=== PATIENT | male | born 1965 | race Caucasian/White ===

== ENCOUNTER → 2016-09-01 | Outpatient (CLI) | payer BC ==
[~2016-09-01] MED LIST: OMEP20CA12 PO
== END ==
LOC: CARD 14:14
PROVIDERS: ATTEND Internal Medicine
DX: R00.2 Palpitations (principal); R42 Dizziness and giddiness
CPT/HCPCS: 93225; 93226

== ENCOUNTER 2018-03-18 10:00 | Outpatient (CLI) | payer BC ==
[~2018-03-18] VITALS: Ht 182.9 cm; Wt 97.5 kg
== END 2018-03-18 10:23 | disposition home or self-care (01) ==
LOC: PREOP 10:00
PROVIDERS: ATTEND Internal Medicine
DX: Z01.818 Encounter for other preprocedural examination (principal)

== ENCOUNTER 2018-03-19 06:49 | Day surgery (SDC) | payer BC ==
[~2018-03-19] VITALS: Ht 182.9 cm; Wt 97.5 kg
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
--- OUTSIDE RECORDS SUMMARY | 2018-03-19 06:52 | XMS REPORT | Continuity of Care Document ---
Author Author [facility] Organization [facility] Address Unknown Phone Unavailable Allergies Active Description Code Type Severity Reaction Onset Reported/Identified Relationship to Patient Clinical Status Yes No Known Drug Allergies [id number] Drug Allergy Unknown N/A 11/23/2013 Medications There is no data. Problems Date Dx Coded Attending Type Code Diagnosis Diagnosed By 07/01/2015 ETHAN GUIDRY MD Ot K21.9 GASTRO-ESOPHAGEAL REFLUX DISEASE WITHOUT 07/01/2015 ETHAN GUIDRY MD Ot R07.9 CHEST PAIN, UNSPECIFIED 07/01/2015 ETHAN GUIDRY MD Ot R50.9 FEVER, UNSPECIFIED 07/01/2015 ETHAN GUIDRY MD Ot R79.1 ABNORMAL COAGULATION PROFILE 07/01/2015 ETHAN GUIDRY MD Ot Z23 ENCOUNTER FOR IMMUNIZATION 09/17/2016 DILIA LUCAS MD Ot R00.2 PALPITATIONS 09/17/2016 DILIA LUCAS MD Ot R42 DIZZINESS AND GIDDINESS Procedures There is no data. Results There is no data. Encounters ACCT No. Visit Date/Time Discharge Status Pt. Type Provider Facility Loc./Unit Complaint [id number] 09/01/2016 14:14:00 09/01/2016 23:59:59 CLS Outpatient DILIA LUCAS MD [facility] CARD PALPITATIONS,DIZZINESS [id number] 06/30/2015 18:22:00 07/01/2015 14:59:00 DIS Inpatient ETHAN GUIDRY MD [facility] [address] [id number] 11/23/2013 10:54:00 11/23/2013 13:29:00 DIS Emergency
[2018-03-19] MEDS ORDERED: D5 LR IV SOLUTION 1,000 ML IV STA (07:03)
[2018-03-19] MEDS ORDERED: D5 LR IV SOLUTION 1,000 ML IV ONE (07:10)
[2018-03-19] MEDS ORDERED: MIDAZOLAM 2 MG/2 ML (VERSED) VIAL IVP ONE (07:15)
[2018-03-19] MEDS ORDERED: LIDOCAINE JELLY 2% 6 ML SYRINGE MM PRN (07:15)
[2018-03-19] MEDS ORDERED: fentaNYL INJECTION 100 MCG/2 ML AMP IVP ONE (07:15)
[2018-03-19 07:24] VITALS: BP 126/87
[2018-03-19] MEDS ORDERED: fentaNYL INJECTION 100 MCG/2 ML AMP ONE (07:52)
[2018-03-19] MEDS ORDERED: MIDAZOLAM 2 MG/2 ML (VERSED) VIAL ONE ×2 (07:52)
[2018-03-19] MEDS ORDERED: LIDOCAINE JELLY 2% 6 ML SYRINGE ONE (07:52)
[2018-03-19 08:40] VITALS: BP 117/79
--- NOTE | 2018-03-19 08:45 | Pre-Op Note & Conscious Sedat ---
Pre-Operative Progress Note H&P Reviewed The H&P was reviewed, patient examined and no changes noted. Date H&P Reviewed: Mar 19, 2018 Time H&P Reviewed: 07:45 Conscious Sedation Pre-Proced ASA Score 1 For ASA 3 and 4: Consider anesthesia and medical clearance. Also, for patients with a history of failed moderate sedation consider anesthesia. Airway Lungs Heart ASA score ASA 1: a normal healthy patient ASA 2: a patient with a mild systemic disease (mid diabetes, controlled hypertension, obesity ASA 3: a patient with a severe systemic disease that limits activity (angina , COPD, prior Myocardial infarction) ASA 4: a patient with an incapacitating disease that is a constant threat to life (CHF, renal failure) ASA 5: a moribund patient not expected to survive 24 hrs. (ruptured aneurysm) ASA 6: a declared brain patient whose organs are being harvested. For emergent operations, add the letter E after the classification Mallampati Classification Grade 2 Sedation Plan Analgesia, Amnesia, Plan communicated to team members, Discussed options with patient/fam, Discussed risks with patient/fam The patient is an appropriate candidate to undergo the planned procedure, sedation, and anesthesia. The patient immediately re-assessed prior to indication. BHARGAV JENSEN MD Mar 19, 2018 08:45
[2018-03-19 09:10] VITALS: BP 134/84
[2018-03-19 09:30] VITALS: BP 134/84
--- NOTE | 2018-03-19 15:29 | OPERATIVE REPORT ---
DATE OF SERVICE: The patient was referred by Dr. Rosario for screening colonoscopy. The patient was placed in the left lateral decubitus position. Prior to undergoing colonoscopy, digital rectal evaluation was performed. Anal sphincter tone was normal and the perianal reflex was intact. Digital inspection of the prostate was unremarkable, it was anodular and nontender to digital inspection. No other abnormalities noted to digital inspection of anal canal or distal rectal vault. The colonoscope was then inserted into the rectum under direct visualization and advanced to the cecum. The cecum was identified by identification of the ileocecal valve and cecal strap. Photographic documentation was obtained. Careful inspection was made as the colonoscope was withdrawn. The patient tolerated the procedure well. FINDINGS: There was no evidence for internal or external hemorrhoids. Present in the mid rectum was a diminutive hyperplastic appearing polyp that was photographed and biopsied and ablated with minimal blood loss. Remainder of the rectum was unremarkable. The sigmoid colon, descending colon, splenic flexure, transverse colon, hepatic flexure, ascending colon and cecum were unremarkable. No other evidence for neoplasia or diverticular disease was noted. ASSESSMENT: Diminutive hyperplastic appearing polyp was removed from the mid rectum. This was an otherwise normal colonoscopy to the cecum including unremarkable digital evaluation of the prostate. I thank you for the referral of this pleasant gentleman. As he is not aware of any family history for colon cancer as long as this continues to be the case, we would advocate consideration for repeat screening colonoscopy in 10 years. Job ID: [id number] DocumentID: [id number] Dictated Date: 03/19/2018 08:53:19 Personal Lines Agent Date: 03/19/2018 15:28:46 Dictated By: BHARGAV JENSEN MD
--- NOTE | 2018-03-24 09:26 | HISTORY AND PHYSICAL ---
DATE OF ADMISSION: 09/01/2016. The patient is a 53-year-old white male referred by Dr. Rosario for his first screening colonoscopy. He reports that he has been feeling well. He states that previously he had undergone EGD evaluation for some reflux symptoms. He was noted to have hiatal hernia and he does not believe he had erosive esophagitis and there is no evidence for Dash's change. Ever since being on omeprazole, he has had no further difficulty with reflux indigestion. No dysphagia or abdominal pain. He denies any change in bowel habits or recent fluctuations in weight. He denies melena or bright red blood per rectum. PAST MEDICAL HISTORY: Relatively unremarkable. He had an admission in 2016 for atypical chest pain with some shortness of breath. His D-dimer was elevated. He ruled out for an acute coronary syndrome and had negative venous Doppler studies as well as subclavian vein prompted by an unusual CT angio that was ultimately attributed to poor timing of contrast administration and image acquisition. It revealed no other abnormalities. PAST SURGICAL HISTORY: Significant for an umbilical hernia repair. He had an appendectomy at the age of 18 and has had rather severe facial laceration traumatic requiring some reconstruction. 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 FAMILY HISTORY: He is not aware of any history of GI tract malignancy. His father did have DVT/PE and there is some family history for Alzheimer's dementia. He is not aware of any history of Dash's or esophageal or gastric cancer. REVIEW OF SYSTEMS: CONSTITUTIONAL: He denies any night sweats, chills, fever with stable energy level. RESPIRATORY: He has had no chest pain, shortness of breath or wheezing. CARDIOVASCULAR: No chest pain or tachycardia problems or dyspnea on exertion have been noted. GASTROINTESTINAL: As noted in the HPI. PHYSICAL EXAMINATION: GENERAL: Reveals well-appearing white male in no acute distress. VITAL SIGNS: Weight is 226 pounds. Blood pressure is 120/82. HEENT: Unremarkable except for some scarring from the facial laceration right cheek and lip area. Sclerae nonicteric. NECK: Revealed no JVD, adenopathy or bruits. CHEST: Clear to auscultation. CARDIOVASCULAR: Reveals a regular rate and rhythm without murmur, S3 or S4. ABDOMEN: Soft, supple without mass, organomegaly or tenderness. EXTREMITIES: Reveal no cyanosis, clubbing or edema. ASSESSMENT: The patient was seen in the office on 03/08/2018 and set up for surveillance colonoscopy on 03/19/2018. Prep instructions with Suprep kit were given and questions were answered. I thank you for the referral of this pleasant gentleman. Job ID: [id number] DocumentID: [id number] Dictated Date: 03/09/2018 12:42:55 Valet Runner Date: 03/09/2018 13:03:46 Dictated By: BHARGAV JENSEN MD <Dictated by BHARGAV JENSEN MD> <Electronically signed by BHARGAV JENSEN MD> 03/14/181952
== END 2018-03-19 09:30 | disposition home or self-care (01) ==
LOC: ENDO 06:49
PROVIDERS: ATTEND Internal Medicine
DX: Z12.11 Encounter for screening for malignant neoplasm of colon (principal); K62.1 Rectal polyp
CPT/HCPCS: 88305

== ENCOUNTER 2018-06-29 16:23 | Emergency (ER) | payer BC ==
[~2018-06-29] VITALS: Ht 182.9 cm; Wt 99.8 kg
[2018-06-29] MEDS ORDERED: ASPIRIN 81 MG CHEW (CHILDREN'S ASA) PO ONE (16:45)
[2018-06-29 16:49] LABS: BASOPHILS % (AUTO) 1 % (0-10); EOSINOPHILS # (AUTO) 0.1 10^3/uL (0.0-0.3); EOSINOPHILS % (AUTO) 3 % (0-10); HEMATOCRIT 41 % (40-54); HEMOGLOBIN 14.5 G/DL (13.3-17.7); LYMPHOCYTES # (AUTO) 1.1 X 10^3 (1.0-4.0); LYMPHOCYTES % (AUTO) 23 % (12-44); MEAN CORPUSCULAR HEMOGLOBIN 29 PG (25-34); MEAN CORPUSCULAR HGB CONC 36 G/DL (32-36); MEAN CORPUSCULAR VOLUME 81 FL (80-99); MEAN PLATELET VOLUME 10.1 FL (7.4-10.4); MONOCYTES # (AUTO) 0.6 X 10^3 (0.0-1.0); MONOCYTES % (AUTO) 13 % (0-12); NEUTROPHILS # (AUTO) 2.9 X 10^3 (1.8-7.8); NEUTROPHILS % (AUTO) 61 % (42-75); PLATELET COUNT 232 10^3/uL (130-400); RED CELL DISTRIBUTION WIDTH 13.5 % (10.0-14.5); WHITE BLOOD COUNT 4.8 10^3/uL (4.3-11.0)
[2018-06-29 17:01] LABS: INR 1.5 (0.8-1.4)
[2018-06-29 17:08] LABS: ALANINE AMINOTRANSFERASE 33 U/L (0-55); ALBUMIN 4.3 GM/DL (3.2-4.5); ALKALINE PHOSPHATASE 90 U/L (40-136); BILIRUBIN,TOTAL 0.3 MG/DL (0.1-1.0); BUN/CREATININE RATIO 12; CALCIUM 9.2 MG/DL (8.5-10.1); CARBON DIOXIDE 26 MMOL/L (21-32); CHLORIDE 106 MMOL/L (98-107); CREATININE SERUM 0.84 MG/DL (0.60-1.30); GFR ESTIMATED > 60; GLUCOSE 97 MG/DL (70-105); LIPASE 27 U/L (8-78); POTASSIUM 3.5 MMOL/L (3.6-5.0); SODIUM 142 MMOL/L (135-145); TOTAL PROTEIN 7.7 GM/DL (6.4-8.2)
--- NOTE | 2018-06-29 17:14 | Diagnostic Imaging Report ---
INDICATION: Chest pain. EXAMINATION: Portable chest at 5:05 p.m. FINDINGS: Heart size and pulmonary vascularity are normal. Lungs are clear. There are no effusions or pneumothoraces. IMPRESSION: Negative chest. Dictated by: Dictated on workstation # [id number]
[2018-06-29 17:17] LABS: MYOGLOBIN SERUM 36.4 NG/ML (10.0-92.0)
--- NOTE | 2018-06-29 17:47 | ED Chest Pain ---
General Chief Complaint: Chest Pain Stated Complaint: CHEST DISCOMFORT,SEND BY DR. LUCAS'S OFFICE Nursing Triage Note: PT PRESENTS TO ER WITH COMPLAINT OF CHEST PAIN. STATES IT HAS BEEN GOING ON FOR THE LAST FEW DAYS. STATES IT IS A DULL INTERMITTENT PAIN. Nursing Sepsis Screen: No Definite Risk Source: patient Exam Limitations: no limitations (TERRY HENLEY MD) History of Present Illness Date Seen by Provider: Jun 29, 2018 Time Seen by Provider: 17:16 Initial Comments Here with report of central chest palpitations that has been intermittent for the last few days but more persistent today. Denies nausea, vomiting, sweating or weakness. Today he noted when he woke up that he felt the palpitations. Has not had any cardiac workup previously. Pain is gone now. He took 1 baby aspirin earlier today. Timing/Duration: intermittent, gone now, 2-3 days Severity/Quality: pressure, other Location: central (palpitations) Radiation: other (both sides of the chest) Activities at Onset: none Prior CP/Workup: no prior cardiac workup Modifying Factors: improves with rest ASA po PURCHASING ASSOCIATE: Yes NTG SL PURCHASING ASSOCIATE: No Associated Symptoms: No abdominal pain, No back pain, No diaphoresis, No fever/ chills, No nausea/vomiting, No shortness of breath, No weakness (TERRY HENLEY MD) Allergies and Home Medications Allergies Coded Allergies: No Known Drug Allergies (Unverified , 11/23/13) Home Medications Omeprazole 20 Mg Capsule.dr, 20 MG PO DAILY, (Reported) Patient Home Medication List Home Medication List Reviewed: Yes (TERRY HENLEY MD) Review of Systems Review of Systems Constitutional: No chills, No fever EENTM: No Symptoms Reported Respiratory: No Symptoms Reported Cardiovascular: See HPI, Chest Pain Gastrointestinal: Denies Abdominal Pain, Denies Nausea, Denies Vomiting Genitourinary: No Symptoms Reported Musculoskeletal: no symptoms reported Skin: no symptoms reported (TERRY HENLEY MD) All Other Systems Reviewed Negative Unless Noted: Yes (TERRY HENLEY MD) Past Icmkqbc-Pfzrbi-Lfrfix Hx Past Med/Social Hx: Reviewed Nursing Past Med/Soc Hx (TERRY HENLEY MD) Patient Social History Alcohol Use: Denies Use Recreational Drug Use: No Smoking Status: Never a Smoker Recent Foreign Travel: No Contact w/Someone Who Travel: No Recent Infectious Disease Expo: No Recent Hopitalizations: No (TERRY HENLEY MD) Immunizations Up To Date Tetanus Booster (TDap): Unknown (TERRY HENLEY MD) Seasonal Allergies Seasonal Allergies: No (TERRY HENLEY MD) Past Medical History Surgeries: Yes (UMB HERNIA, FACE LACERATION WITH RECONSTRUCTION, ankle right, BMT) Appendectomy, Orthopedic Respiratory: Yes Sleep Apnea Currently Using CPAP: No Cardiac: No Neurological: No Reproductive Disorders: No Sexually Transmitted Disease: No HIV/AIDS: No Gastrointestinal: Yes Gastroesophageal Reflux Musculoskeletal: No Endocrine: No Chronic Eye Infection Loss of Vision: Denies Hearing Impairment: Denies Cancer: No Psychosocial: No Integumentary: No Blood Disorders: No (TERRY HENLEY MD) Family Medical History Reviewed Nursing Family Hx (TERRY HENLEY MD) Alzheimer's disease Arthritis Cardiovascular disease Completed stroke Dementia Seizure disorder Tuberculosis DVT/PE (TERRY HENLEY MD) Physical Exam Vital Signs Vital Signs - First Documented 06/29/18 16:31 Pulse 63 Resp 15 B/P (MAP) 125/97 (106) Pulse Ox 97 O2 Delivery Room Air (SHERRI,ARELI K DO) Vital Signs Capillary Refill : Less Than 3 Seconds (TERRY HENLEY MD) Height, Weight, BMI Height: 6'0" Weight: 220lbs. 0.0oz. 99.922151wc; 29.2 BMI Method:Stated General Appearance: No Apparent Distress, WD/WN HEENT: PERRL/EOMI, Pharynx Normal Neck: Non Tender, Supple Respiratory: Lungs Clear, Normal Breath Sounds Cardiovascular: Regular Rate, Rhythm, No Murmur Gastrointestinal: Non Tender, Soft Extremity: Normal Range of Motion, Non Tender Neurologic/Psychiatric: Alert, Oriented x3 Skin: Normal Color, Warm/Dry (TERRY HENLEY MD) Progress/Results/Core Measures Results/Orders Lab Results Laboratory Tests Test 06/29/18 16:44 06/29/18 18:49 Range/Units White Blood Count 4.8 4.3-11.0 10^3/uL Red Blood Count 5.02 4.35-5.85 10^6/uL Hemoglobin 14.5 13.3-17.7 G/DL Hematocrit 41 40-54 % Mean Corpuscular Volume 81 80-99 FL Mean Corpuscular Hemoglobin 29 25-34 PG Mean Corpuscular Hemoglobin Concent 36 32-36 G/DL Red Cell Distribution Width 13.5 10.0-14.5 % Platelet Count 232 130-400 10^3/uL Mean Platelet Volume 10.1 7.4-10.4 FL Neutrophils (%) (Auto) 61 42-75 % Lymphocytes (%) (Auto) 23 12-44 % Monocytes (%) (Auto) 13 H 0-12 % Eosinophils (%) (Auto) 3 0-10 % Basophils (%) (Auto) 1 0-10 % Neutrophils # (Auto) 2.9 1.8-7.8 X 10^3 Lymphocytes # (Auto) 1.1 1.0-4.0 X 10^3 Monocytes # (Auto) 0.6 0.0-1.0 X 10^3 Eosinophils # (Auto) 0.1 0.0-0.3 10^3/uL Basophils # (Auto) 0.0 0.0-0.1 10^3/uL Prothrombin Time 18.0 H 12.9 12.2-14.7 SEC INR Comment 1.5 H 1.0 0.8-1.4 Activated Partial Thromboplast Time 27 24-35 SEC D-Dimer 0.45 0.00-0.49 UG/ML Sodium Level 142 135-145 MMOL/L Potassium Level 3.5 L 3.6-5.0 MMOL/L Chloride Level 106 98-107 MMOL/L Carbon Dioxide Level 26 21-32 MMOL/L Anion Gap 10 5-14 MMOL/L Blood Urea Nitrogen 10 7-18 MG/DL Creatinine 0.84 0.60-1.30 MG/DL Estimat Glomerular Filtration Rate > 60 BUN/Creatinine Ratio 12 Glucose Level 97 70-105 MG/DL Calcium Level 9.2 8.5-10.1 MG/DL Corrected Calcium 9.0 8.5-10.1 MG/DL Magnesium Level 2.0 1.8-2.4 MG/DL Total Bilirubin 0.3 0.1-1.0 MG/DL Aspartate Amino Transf (AST/SGOT) 21 5-34 U/L Alanine Aminotransferase (ALT/SGPT) 33 0-55 U/L Alkaline Phosphatase 90 40-136 U/L Myoglobin 36.4 10.0-92.0 NG/ML Troponin I < 0.028 < 0.028 <0.028 NG/ML Total Protein 7.7 6.4-8.2 GM/DL Albumin 4.3 3.2-4.5 GM/DL Lipase 27 8-78 U/L (ARELI NAGEL DO) Medications Given in ED Current Medications Medications Dose Ordered Sig/Raghav Route Start Time Stop Time Status Last Admin Dose Admin Aspirin 324 mg ONCE ONCE PO 06/29/18 16:45 06/29/18 16:46 DC 06/29/18 17:00 324 MG (ARELI NAGEL DO) Vital Signs/I&O 06/29/18 16:31 Pulse 63 Resp 15 B/P (MAP) 125/97 (106) Pulse Ox 97 O2 Delivery Room Air (ARELI NAGEL DO) Blood Pressure Mean: 106 Progress Progress Note : Progress Note Seen and evaluated. IV, labs, EKG and chest x-ray ordered. ASA 324 mg by mouth ordered. Monitor patient. We will check d-dimer as well as there was some concern of blood clot in his history. Monitor patient. 184: PT/INR was elevated and there is no reason for that. We will recheck that as well as a troponin now. Patient does not want any further evaluation if possible. EKG, troponin and d-dimer are all negative. He does need follow-up with his doctor for recheck and for outpatient stress test if these are okay. Care transferred to Dr. Nagel at this time pending labs. (TERRY HENLEY MD) Progress Note : Progress Note 193--ASSUMED CARE FROM DR. HENLEY, ALL TESTS BACK AND ARE NORMAL. WILL DISMISS TO HOME AND HAVE PT FOLLOW UP WITH PCP FOR FURTHER EVALUATION. PT HAS NOT HAD ANY ARRHYTHMIAS DURING ER STAY OR ANY OTHER SYMPTOMS. (ARELI NAGEL DO) Initial ECG Impression Date: Jun 29, 2018 Initial ECG Impression Time: 16:35 Initial ECG Rate: 61 Initial ECG Rhythm: Normal Sinus Comment Sinus rhythm with left axis deviation. No evidence of ST elevation DC. Similar to 07/01/15. Interpreted by me. (TERRY HENLEY MD) Diagnostic Imaging Diagonstic Imaging: Xray Plain Films/CT/US/NM/MRI: chest Comments NAME: AURELIANO GALEANA [facility] REC#: [id number] PT STATUS: REG ER : 1965 PHYSICIAN: TERRY HENLEY MD ADMIT DATE: 06/29/18/ER Signed Date of Exam: 06/29/18 CHEST 1 VIEW, AP/PA ONLY INDICATION: Chest pain. EXAMINATION: Portable chest at 5:05 p.m. FINDINGS: Heart size and pulmonary vascularity are normal. Lungs are clear. There are no effusions or pneumothoraces. IMPRESSION: Negative chest. Dictated by: Dictated on workstation # [id number] Dict: 06/29/181711 Trans: 06/29/181717 Interpreted by: TERRY MCCANN MD Electronically signed by: TERRY MCCANN MD 06/29/181717 (TERRY HENLEY MD) Departure Impression Primary Impression: Palpitations Disposition: 01 HOME, SELF-CARE Condition: Improved Departure-Patient Inst. Referrals: DILIA LUCAS MD (PCP/Family) Primary Care Physician Patient Instructions: Palpitations (DC) Add. Discharge Instructions: HOME, REST FOLLOW UP WITH YOUR DR THIS WEEK FOR FURTHER CARE RETURN TO ER IF SYMPTOMS RETURN All discharge instructions reviewed with patient and/or family. Voiced understanding. TERRY HENLEY MD Jun 29, 2018 17:47 ARELI NAGEL DO Jun 29, 2018 19:42
--- NOTE | 2018-06-29 18:55 | NUR ---
ASSUMED CARE OF PT @ THIS TIME. REPORT GIVEN FROM ALONDRA GEE.
[2018-06-29 19:18] LABS: PROTHROMBIN TIME PATIENT 12.9 SEC (12.2-14.7)
[2018-06-29 19:52] VITALS: BP 108/88
== END 2018-06-29 19:55 | disposition home or self-care (01) ==
LOC: EDUNIT# 16:23 → ER 16:25
DX: R00.0 Tachycardia, unspecified (principal); G47.30 Sleep apnea, unspecified; K21.9 Gastro-esophageal reflux disease without esophagitis; Z82.49 Family history of ischemic heart disease and other diseases of the circulatory system; Z90.49 Acquired absence of other specified parts of digestive tract; Z98.890 Other specified postprocedural states
CPT/HCPCS: 36415; 71045; 80053; 83690; 83735; 83874; 84484; 85025; 85379; 85610; 85730; 93005; 93041

== ENCOUNTER → 2018-09-23 | Outpatient (CLI) | payer BC | END | disposition home or self-care (01) | LOC: PREOP 08:15 | PROVIDERS: ATTEND Internal Medicine | DX: Z01.818 Encounter for other preprocedural examination (principal) ==

== ENCOUNTER 2018-09-24 08:05 | Day surgery (SDC) | payer BC ==
--- NOTE | 2018-09-23 17:59 | HISTORY AND PHYSICAL ---
DATE OF SERVICE: DATE OF ADMISSION: 09/24/2018. EGD HISTORY AND PHYSICAL HISTORY OF PRESENT ILLNESS: The patient is a 53-year-old white male referred by Dr. Rosario for EGD evaluation for intermittent dysphagia. He reports that it is typically the solids, feels like it is in the back of his throat and not in the epigastric area. He reports no history of any neurologic disorders. Denies any problems with weakness or any other new neurologic symptoms and denies any nasal regurgitation. He has not had to regurgitate food, but symptoms have been getting worse over the past several months. He had a past history of EGD evaluation over 5 years ago at which time he was told he had some esophageal ulcers with hiatal hernia. He started omeprazole at that time and did not had any heartburn type symptoms since and previously had not had dysphagia reported. He denies any increased stress with usual energy level. He has had no melena or bright red blood per rectum. PAST MEDICAL HISTORY: He was admitted in 2016 for atypical chest pain shortness of breath and D-dimer was elevation. CT angio was negative. He ruled out for an acute coronary syndrome. I performed colonoscopy on him last year that revealed no evidence for neoplasia. PAST SURGICAL HISTORY: Significant for umbilical hernia repair. He had an appendectomy at the age of 18 and traumatic facial lacerations requiring reconstructive surgery. SOCIAL HISTORY: He is a regional dedicated truck driver employed, , with no past smoking or significant alcohol intake history. FAMILY HISTORY: He is not aware of any family history for Dash's esophagus or GI tract malignancy. His father did have history of pulmonary embolism and DVT as well as Alzheimer's dementia. REVIEW OF SYSTEMS: CONSTITUTIONAL: He denies night sweats, chills, fever. RESPIRATORY: He denies shortness of breath, wheezing or chest pain. CARDIOVASCULAR: He has had no problems with tachycardia, palpitations or dyspnea on exertion. GASTROINTESTINAL: As noted in the HPI. PHYSICAL EXAMINATION: GENERAL: Reveals thin, well-appearing white male in no acute distress. VITAL SIGNS: Weight 226 pounds is stable compared to seven months ago. Blood pressure 120/70. HEENT: Unremarkable. Oral cavity is clear. Posterior pharynx reveals no evidence for erythema or exudate. NECK: Reveals no JVD, adenopathy, mass or thyromegaly to palpation. CHEST: Clear to auscultation. CARDIOVASCULAR: Reveals regular rate and rhythm without murmur, S3 or S4. ABDOMEN: Soft, supple without mass, organomegaly or tenderness. EXTREMITIES: Reveal no cyanosis, clubbing or edema. ASSESSMENT AND PLAN: For further investigation of dysphagia with a past history of erosive esophagitis, the patient is set up for EGD evaluation on 09/24/2018. He is to continue omeprazole 40 mg daily in the interim. I thank you for the referral of this pleasant gentleman. Job ID: [id number] DocumentID: [id number] Dictated Date: 09/23/2018 17:11:34 Route Salesman Date: 09/23/2018 17:58:41 Dictated By: BHARGAV JENSEN MD MTDD
[~2018-09-24] VITALS: Ht 182.9 cm; Wt 99.8 kg
[2018-09-24] MEDS ORDERED: LIDOCAINE JELLY 2% 6 ML SYRINGE MM PRN (08:15)
[2018-09-24] MEDS ORDERED: D5 LR IV SOLUTION 1,000 ML IV PRN (08:15)
[2018-09-24] MEDS ORDERED: HURRICAINE EXT TUBE (BENZOCAINE) XX PRN (08:15)
[2018-09-24 08:20] VITALS: BP 128/91
[2018-09-24] MEDS ORDERED: D5 LR IV SOLUTION 1,000 ML IV ONE (08:20)
[2018-09-24] MEDS ORDERED: MIDAZOLAM 2 MG/2 ML (VERSED) VIAL ONE ×4 (08:57→09:29)
[2018-09-24] MEDS ORDERED: LIDOCAINE JELLY 2% 6 ML SYRINGE ONE (08:58)
[2018-09-24] MEDS ORDERED: HURRICAINE EXT TUBE (BENZOCAINE) ONE (08:58)
[2018-09-24] MEDS ORDERED: fentaNYL INJECTION 100 MCG/2 ML AMP ONE (08:58)
--- NOTE | 2018-09-24 09:01 | Pre-Op Note & Conscious Sedat ---
Pre-Operative Progress Note H&P Reviewed The H&P was reviewed, patient examined and no changes noted. Date H&P Reviewed: Sep 24, 2018 Time H&P Reviewed: 08:40 Conscious Sedation Pre-Proced ASA Score 2 For ASA 3 and 4: Consider anesthesia and medical clearance. Also, for patients with a history of failed moderate sedation consider anesthesia. Airway Lungs Heart ASA score ASA 1: a normal healthy patient ASA 2: a patient with a mild systemic disease (mid diabetes, controlled hypertension, obesity ASA 3: a patient with a severe systemic disease that limits activity (angina, COPD, prior Myocardial infarction) ASA 4: a patient with an incapacitating disease that is a constant threat to life (CHF, renal failure) ASA 5: a moribund patient not expected to survive 24 hrs. (ruptured aneurysm) ASA 6: a declared brain- patient whose organs are being harvested. For emergent operations, add the letter E after the classification Mallampati Classification Grade 2 Sedation Plan Analgesia, Amnesia, Plan communicated to team members, Discussed options with patient/fam, Discussed risks with patient/fam The patient is an appropriate candidate to undergo the planned procedure, sedation, and anesthesia. The patient immediately re-assessed prior to indication. BHARGAV JENSEN MD Sep 24, 2018 09:01
[2018-09-24] MEDS ORDERED: fentaNYL INJECTION 100 MCG/2 ML AMP IVP ONE (09:45)
[2018-09-24] MEDS ORDERED: MIDAZOLAM 2 MG/2 ML (VERSED) VIAL IVP ONE (09:45)
[2018-09-24 10:20] VITALS: BP 124/77
[2018-09-24 10:50] VITALS: BP 127/72
--- OUTSIDE RECORDS SUMMARY | 2018-09-24 13:20 | XMS REPORT | Continuity of Care Document ---
Author Organization Unknown Address Unknown Allergies Active Description Code Type Severity Reaction Onset Reported/Identified Relationship to Patient Clinical Status Yes No Known Drug Allergies [id number] Drug Allergy Unknown N/A 11/23/2013 Medications There is no data. Problems Date Dx Coded Attending Type Code Diagnosis Diagnosed By 07/01/2015 CHAO CAMEJO, ETHAN Little Ot K21.9 GASTRO-ESOPHAGEAL REFLUX DISEASE WITHOUT 07/01/2015 ETHAN GUIDRY MD Ot R07.9 CHEST PAIN, UNSPECIFIED 07/01/2015 ETHAN GUIDRY MD Ot R50.9 FEVER, UNSPECIFIED 07/01/2015 ETHAN GUIDRY MD Ot R79.1 ABNORMAL COAGULATION PROFILE 07/01/2015 CHAO CAMEJO, ETHAN Little Ot Z23 ENCOUNTER FOR IMMUNIZATION 09/17/2016 DILIA LUCAS MD Ot R00.2 PALPITATIONS 09/17/2016 IDLIA LUCAS MD Ot R42 DIZZINESS AND GIDDINESS 03/17/2018 BHARGAV JENSEN MD Ot Z01.818 ENCOUNTER FOR OTHER PREPROCEDURAL EXAMIN 03/18/2018 DILIA LUCAS MD Ot R00.2 PALPITATIONS 03/18/2018 DILIA LUCAS MD Ot R42 DIZZINESS AND GIDDINESS 03/18/2018 BHARGAV JENSEN MD Ot Z01.818 ENCOUNTER FOR OTHER PREPROCEDURAL EXAMIN 03/18/2018 BHARGAV JENSEN MD Ot Z01.818 ENCOUNTER FOR OTHER PREPROCEDURAL EXAMIN 03/18/2018 BHARGAV JENSEN MD Ot Z01.818 ENCOUNTER FOR OTHER PREPROCEDURAL EXAMIN 03/19/2018 DILIA LUCAS MD Ot R00.2 PALPITATIONS 03/19/2018 DILIA LUCAS MD Ot R42 DIZZINESS AND GIDDINESS 03/19/2018 BHARGAV JENSEN MD Ot K62.1 RECTAL POLYP 03/19/2018 BHARGAV JENSEN MD Ot Z12.11 ENCOUNTER FOR SCREENING FOR MALIGNANT NE 03/24/2018 CAMILA CAMEJO, BHARGAV Mahmood Ot K62.1 RECTAL POLYP 03/24/2018 BHARGAV JENSEN MD Ot Z12.11 ENCOUNTER FOR SCREENING FOR MALIGNANT NE 06/29/2018 LANCE CAMEJO, DILIA Mahmood Ot R00.2 PALPITATIONS 06/29/2018 DILIA LUCAS MD Ot R42 DIZZINESS AND GIDDINESS 06/29/2018 SHERRI DO, ARELI K Ot G47.30 SLEEP APNEA, UNSPECIFIED 06/29/2018 SHERRI DO, ARELI K Ot K21.9 GASTRO-ESOPHAGEAL REFLUX DISEASE WITHOUT 06/29/2018 SHERRI DO, ARELI K Ot R00.0 TACHYCARDIA, UNSPECIFIED 06/29/2018 SHERRI DO, ARELI K Ot R07.89 OTHER CHEST PAIN 06/29/2018 SHERRI DO, ARELI K Ot Z82.49 FAMILY HX OF ISCHEM HEART DIS AND OTH DI 06/29/2018 SHERRI DO, ARELI K Ot Z90.49 ACQUIRED ABSENCE OF OTHER SPECIFIED PART 06/29/2018 SHERRI DO, ARELI K Ot Z98.890 OTHER SPECIFIED POSTPROCEDURAL STATES 07/01/2018 SHERRI DO, ARELI K Ot G47.30 SLEEP APNEA, UNSPECIFIED 07/01/2018 SHERRI DO, ARELI K Ot K21.9 GASTRO-ESOPHAGEAL REFLUX DISEASE WITHOUT 07/01/2018 SHERRI DO, ARELI K Ot R00.0 TACHYCARDIA, UNSPECIFIED 07/01/2018 SHERRI DO, ARELI K Ot R07.89 OTHER CHEST PAIN 07/01/2018 SHERRI DO, ARELI K Ot Z82.49 FAMILY HX OF ISCHEM HEART DIS AND OTH DI 07/01/2018 SHERRI DO, ARELI K Ot Z90.49 ACQUIRED ABSENCE OF OTHER SPECIFIED PART 07/01/2018 SHERRI DO, ARELI K Ot Z98.890 OTHER SPECIFIED POSTPROCEDURAL STATES Procedures There is no data. Results Test Result Range Complete blood count (CBC) with automated white blood cell (WBC) differential - 06/29/18 16:44 Blood leukocytes automated count (number/volume) 4.8 10*3/uL 4.3-11.0 Blood erythrocytes automated count (number/volume) 5.02 10*6/uL 4.35-5.85 Venous blood hemoglobin measurement (mass/volume) 14.5 g/dL 13.3-17.7 Blood hematocrit (volume fraction) 41 % 40-54 Automated erythrocyte mean corpuscular volume 81 [foz_us] 80-99 Automated erythrocyte mean corpuscular hemoglobin (mass per erythrocyte) 29 pg 25-34 Automated erythrocyte mean corpuscular hemoglobin concentration measurement (mass/volume) 36 g/dL 32-36 Automated erythrocyte distribution width ratio 13.5 % 10.0- 14.5 Automated blood platelet count (count/volume) 232 10*3/uL 130-400 Automated blood platelet mean volume measurement 10.1 [foz_us] 7.4-10.4 Automated blood neutrophils/100 leukocytes 61 % 42-75 Automated blood lymphocytes/100 leukocytes 23 % 12-44 Blood monocytes/100 leukocytes 13 % 0-12 Automated blood eosinophils/100 leukocytes 3 % 0-10 Automated blood basophils/100 leukocytes 1 % 0-10 Blood neutrophils automated count (number/volume) 2.9 10*3 1.8-7.8 Blood lymphocytes automated count (number/volume) 1.1 10*3 1.0-4.0 Blood monocytes automated count (number/volume) 0.6 10*3 0.0- 1.0 Automated eosinophil count 0.1 10*3/uL 0.0-0.3 Automated blood basophil count (count/volume) 0.0 10*3/uL 0.0-0.1 PT panel in platelet poor plasma by coagulation assay - 06/29/18 16:44 Prothrombin time (PT) in platelet poor plasma by coagulation assay 18.0 s 12.2-14.7 INR in platelet poor plasma or blood by coagulation assay 1.5 0.8-1.4 Activated partial thromboplastin time (aPTT) in platelet poor plasma bycoagulation assay - 06/29/18 16:44 Activated partial thromboplastin time (aPTT) in platelet poor plasma bycoagulation assay 27 s 24-35 Comprehensive metabolic panel - 06/29/18 16:44 Serum or plasma sodium measurement (moles/volume) 142 mmol/L 135-145 Serum or plasma potassium measurement (moles/volume) 3.5 mmol/L 3.6-5.0 Serum or plasma chloride measurement (moles/volume) 106 mmol/L 98-107 Carbon dioxide 26 mmol/L 21-32 Serum or plasma anion gap determination (moles/volume) 10 mmol/L 5-14 Serum or plasma urea nitrogen measurement (mass/volume) 10 mg/dL 7-18 Serum or plasma creatinine measurement (mass/volume) 0.84 mg/dL 0.60-1.30 Serum or plasma urea nitrogen/creatinine mass ratio 12 NRG Serum or plasma creatinine measurement with calculation of estimated glomerular filtration rate > NRG Serum or plasma glucose measurement (mass/volume) 97 mg/dL 70-105 Serum or plasma calcium measurement (mass/volume) 9.2 mg/dL 8.5-10.1 Serum or plasma total bilirubin measurement (mass/volume) 0.3 mg/dL 0.1-1.0 Serum or plasma alkaline phosphatase measurement (enzymatic activity/volume) 90 U/L 40-136 Serum or plasma aspartate aminotransferase measurement (enzymatic activity/volume) 21 U/L 5-34 Serum or plasma alanine aminotransferase measurement (enzymatic activity/volume) 33 U/L 0-55 Serum or plasma protein measurement (mass/volume) 7.7 g/dL 6.4-8.2 Serum or plasma albumin measurement (mass/volume) 4.3 g/dL 3.2-4.5 CALCIUM CORRECTED 9.0 mg/dL 8.5-10.1 Magnesium - 06/29/18 16:44 Magnesium 2.0 mg/dL 1.8-2.4 Serum or plasma troponin i.cardiac measurement (mass/volume) - 06/29/18 16:44 Serum or plasma troponin i.cardiac measurement (mass/volume) < ng/mL <0.028 Myoglobin, serum - 06/29/18 16:44 Myoglobin, serum 36.4 ng/mL 10.0-92.0 Lipase - 06/29/18 16:44 Lipase 27 U/L 8-78 Fibrin D-dimer FEU measurement in platelet poor plasma (mass/volume) - 06/29/18 16:44 Fibrin D-dimer FEU measurement in platelet poor plasma (mass/volume) 0.45 ug/mL 0.00-0.49 PT panel in platelet poor plasma by coagulation assay - 06/29/18 18:49 Prothrombin time (PT) in platelet poor plasma by coagulation assay 12.9 s 12.2-14.7 INR in platelet poor plasma or blood by coagulation assay 1.0 0.8-1.4 Serum or plasma troponin i.cardiac measurement (mass/volume) - 06/29/18 18:49 Serum or plasma troponin i.cardiac measurement (mass/volume) < ng/mL <0.028 Encounters ACCT No. Visit Date/Time Discharge Status Pt. Type Provider Facility Loc./Unit Complaint [id number] 06/29/2018 16:25:00 06/29/2018 19:55:00 DIS Emergency SHERRI MITCHELL ARELI Marino [facility] ER CHEST DISCOMFORT,SEND BY DR. LUCAS'S OFFICE [id number] 03/19/2018 06:49:00 03/19/2018 09:30:00 DIS Outpatient BHARGAV JENSEN MD [facility] ENDO SCREENING [id number] 03/18/2018 10:00:00 03/18/2018 10:23:00 DIS Outpatient BHARGAV JENSEN MD [facility] PREOP COLONOSCOPY [id number] 09/01/2016 14:14:00 09/01/2016 23:59:59 CLS Outpatient DILIA LUCAS MD [facility] CARD PALPITATIONS,DIZZINESS [id number] 06/30/2015 18:22:00 07/01/2015 14:59:00 DIS Inpatient ETHAN GUIDRY MD [facility] 4TH [id number] 11/23/2013 10:54:00 11/23/2013 13:29:00 DIS Emergency
--- NOTE | 2018-09-24 18:13 | OPERATIVE REPORT ---
DATE OF SERVICE: 09/24/2018 ESOPHAGOGASTRODUODENOSCOPY SUMMARY INDICATION FOR THE PROCEDURE: Dysphagia. DESCRIPTION OF PROCEDURE: The patient was placed in the left lateral decubitus position. The endoscope was inserted in the oral cavity and under direct visualization, the esophagus was intubated. Endoscope was passed down the esophagus through the stomach and second portion of the duodenum. Careful inspection was made as the endoscope was withdrawn. The patient tolerated the procedure well. The patient did have a significant gag reflex requiring a little more than the average amount of medication, a total of 8 mg of Versed and 100 mg of fentanyl. FINDINGS: Posterior pharynx, arytenoid aperture, true and false vocal folds and epiglottis were unremarkable. The proximal and mid esophagus were unremarkable. There is a small sliding hiatal hernia present with one shallow erosion just involving 10% of the esophageal circumference. A biopsy was obtained and submitted for histopathology. The cardia, fundus and antrum of the stomach were unremarkable as was the pylorus, pyloric channel, duodenal bulb and second portion of the duodenum. ASSESSMENT: Small sliding hiatal hernia is present with LA grade A erosive esophagitis. There was no evidence for mechanical obstruction of the esophagus. 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 I discussed erossive esophagitis and esophageal spasm issues and the need for regular medication. He reported that he would maintain compliance, but symptoms unfortunately would not be a good guide for him for control of his reflux. I thank you for the referral of this pleasant gentleman. Job ID: [id number] DocumentID: [id number] Dictated Date: 09/24/2018 11:50:07 Sheeting Puller Date: 09/24/2018 18:12:52 Dictated By: BHARGAV JENSEN MD [facility]
== END 2018-09-24 10:55 | disposition home or self-care (01) ==
LOC: ENDO 08:05
PROVIDERS: ATTEND Internal Medicine
DX: K22.10 Ulcer of esophagus without bleeding (principal); K22.4 Dyskinesia of esophagus; K44.9 Diaphragmatic hernia without obstruction or gangrene

== ENCOUNTER → 2020-03-07 | Day surgery (SDC) | payer BC ==
[~2020-03-07] VITALS: Ht 182 cm; Wt 104.0 kg
[2020-03-07] VITALS (14 sets, daily range): BP systolic 116–164; BP diastolic 61–93
[~2020-03-07] MED LIST changes: +ATOR10TA PO; +CATHETER FLUSH 10 ML SYR IV PRN; +HEParin (CATH LAB) 2,000 ML IV ONE; +LIDOCAINE 1% INJ 20 ML 20 ML VIAL ONE; +METO-351 PO; +MIDAZOLAM 5 MG/5 ML (VERSED) VIAL ONE; +NS IV 1000 ML 1,000 ML IV SCH; +NS IV 1000 ML 1,000 ML ONE; -OMEP20CA12 PO; +OMEP20CA18 PO; +ONDANSETRON 4 MG/2 ML (SDV) Z0FRAN IVP ONE; +ONDANSETRON 4 MG/2 ML (SDV) Z0FRAN ONE; +PATIENT MAY USE OWN MEDS, ALL PO SCH; +fentaNYL INJECTION 100 MCG/2 ML AMP ONE
[2020-03-07 11:36] LABS: HEMOGLOBIN 14.1 g/dL (13.3-17.7); WHITE BLOOD COUNT 4.8 10^3/uL (4.3-11.0)
[2020-03-07 11:49] LABS: PROTHROMBIN TIME PATIENT 13.6 SEC (12.2-14.7)
[2020-03-07 12:09] LABS: ALANINE AMINOTRANSFERASE 42 U/L (0-55); ALBUMIN 4.3 GM/DL (3.2-4.5); ALKALINE PHOSPHATASE 97 U/L (40-136); BILIRUBIN,TOTAL 0.4 MG/DL (0.1-1.0); BUN/CREATININE RATIO 10; CALCIUM 9.4 MG/DL (8.5-10.1); CARBON DIOXIDE 25 MMOL/L (21-32); CHLORIDE 104 MMOL/L (98-107); CHOLESTEROL 208 MG/DL (< 200); CREATININE SERUM 0.93 MG/DL (0.60-1.30); GFR ESTIMATED > 60; GLUCOSE 89 MG/DL (70-105); HDL CHOLESTEROL 39 MG/DL (40-60); POTASSIUM 3.7 MMOL/L (3.6-5.0); SODIUM 142 MMOL/L (135-145); TOTAL PROTEIN 7.9 GM/DL (6.4-8.2); TRIGLYCERIDES 235 MG/DL (<150); VLDL CHOLESTEROL 47 MG/DL (5-40)
--- NOTE | 2020-03-07 12:15 | Diagnostic Imaging Report ---
Indication: Preoperative evaluation AP view of the chest is obtained with comparison made study of 06/29/2018 COMPARISON: No previous study is available for comparison at this time. FINDINGS: Heart size and pulmonary vasculature are within normal limits, and the lungs are clear, bilaterally. IMPRESSION: Unremarkable chest. Dictated by: Dictated on workstation # [id number]
--- NOTE | 2020-03-07 12:24 | Cardiac Procedure Note-CS/ASA ---
Pre-Procedure Note Pre-Op Procedure Note H&P Reviewed The H&P was reviewed, patient examined and no changes noted. Date H&P Reviewed: Mar 07, 2020 Time H&P Reviewed: 11:00 Conscious Sedation Pre-Proced Time 11:00 ASA Score 3 For ASA 3 and 4: Consider anesthesia and medical clearance. Also, for patients with a history of failed moderate sedation consider anesthesia. Airway Lungs Heart ASA score ASA 1: a normal healthy patient ASA 2: a patient with a mild systemic disease (mid diabetes, controlled hypertension, obesity x ASA 3: a patient with a severe systemic disease that limits activity (angina, COPD, prior Myocardial infarction) ASA 4: a patient with an incapacitating disease that is a constant threat to life (CHF, renal failure) ASA 5: a moribund patient not expected to survive 24 hrs. (ruptured aneurysm) ASA 6: a declared brain- patient whose organs are being harvested. For emergent operations, add the letter E after the classification Mallampati Classification Grade 3 Sedation Plan Analgesia, Amnesia, Plan communicated to team members, Discussed options with patient/fam, Discussed risks with patient/fam The patient is an appropriate candidate to undergo the planned procedure, sedation, and anesthesia. The patient immediately re-assessed prior to indication. ASH MARTINEZ MD Mar 07, 2020 12:24 pm
--- NOTE | 2020-03-07 12:27 | Discharge Inst-Post CATH ---
Discharge Inst-CATH/EP Problems Reviewed?: Yes Post Cardiac Cath/EP D/C Inst Follow Up/Plan Appointment with Dr. Odom's office in 4 weeks <b>CARDIAC CATH/EP PROCEDURE DISCHARGE INSTRUCTIONS</b> ACTIVITY * Go Home directly and rest. * Limit activity of the leg (or wrist if it was used) for 7 days including aerobics, swimming, jogging, bicycling, etc. * Restrict stair-climbing for 7 days if possible, if not, climb up with your non-cath leg, then bring together on the same step. * Avoid lifting, pushing, pulling or excessive movement of the affected extremity for 7 days. * Customary sexual activity may be resumed after 2 days-use caution not to use a position that strains or causes pain to the affected extremity. * No driving for 24 hours. * NO SMOKING. * Avoid straining for bowel movements for 7 days. * Gentle walking on level ground is allowed. * Returning to work will depend on the type of procedure and the results. Your doctor will discuss this with you. CALL YOUR DOCTOR FOR ANY OF THE FOLLOWING: *If bleeding from the puncture site occurs- Apply gentle pressure to site with clean cloth and call your doctor or EMS. * If a knot or lump forms under the skin, increases in size, or causes pain. * If bruising appears to be worsening or moving further down your leg instead of disappearing. * Temperature above 101 F. CARE OF YOUR GROIN INCISION; * Bruising or purple discoloration of the skin near the puncture site is common. * You may shower only, no bathtub bathing for 5 days. Be careful to avoid slipping as your leg may feel stiff. * If a closure device was used on your femoral artery, please see the attached guide regarding care of the device and your leg. * Leave dressing on FOR 24 hours. CARE OF YOUR WRIST INCISION; * Bruising or purple discoloration of the skin near the puncture site is common. * You may shower. * DO NOT submerge wrist. * Leave dressing on FOR 24 hours. ASH ODOM MD Mar 07, 2020 12:27 pm
--- NOTE | 2020-03-07 12:32 | Cardiac Cath Report ---
Cardiac Cath Report Physician (s)/Bread Distributor (s) Physician ASH MARTINEZ MD Pre-Procedure Diagnosis Pre-Procedure Diagnosis: coronary artery disease Post-Procedure Note Procedure Start Date: Mar 07, 2020 Name of Procedure: Left heart catheterization Findings/Procedure Note PROCEDURE NOTE: 54 years old gentleman with history of chest pain, underwent stress test and during stress test is QRS became wider with tachycardia, SPECT images showed reversible ischemia involving the inferior wall. Discussed the management plan recommended cardiac catheterization possible PTCA After explaining the procedure to the patient, all pros and cons were explained, all questions were answered. The patient signed the consent and then he was placed on the cardiac catheterization laboratory. Groin was prepped SL fashion local anesthesia was used. Sheath placed in the right femoral artery. Bradford right and left catheter were used to access the coronary system. Pigtail was used to access the left ventricular cavity. Left ventriculogram was not done, pressure was measured At the end of the procedure the sheath was removed. Closure device was used FINDINGS: Hemodynamics LV 120/13, end-diastolic pressure of 13 Aorta 117/79 mean of 95 ANATOMY: Left Main is free of obstructive disease Left Anterior Descending has mild disease nonobstructive disease Left Circumflex has mild disease nonobstructive disease Right Coronory Artery is large dominant artery with mild disease nonobstructive disease LV Gram was not done, pressure was measured CONCLUSION: 1. Mild coronary artery disease nonobstructive disease 2. Normal left ventricular end-diastolic pressure. DISCUSSION AND RECOMMENDATION: Patient had episode of tachycardia during exercise stress test and had questionable ischemia probably due to extracardiac attenuation. I'll start him on beta blockers and statin due to his hyperlipidemia and a wide-complex tachycardia. Evaluate his tolerance and response Anesthesia Type: Conscious Sedation Estimated blood loss (mL): 25 ml Contrast Amount: 35 ml Total Radiation Dose: 268 mGy Post-Procedure Diagnosis Post-operative diagnosis: Palpitation Chest pain Hyperlipidemia Coronary artery disease ASH MARTINEZ MD Mar 07, 2020 12:32
--- NOTE | 2020-03-07 14:17 | Cardiology Stress Test Report ---
Stress Test Report Date of Procedure/Referring: Date of Procedure: Mar 07, 2020 PCP Ash Odom MD Admitting Physician Олег Rosario MD Indications: Chest pain Baseline Heart Rate: 62 Baseline Blood Pressure: Blood Pressure Systolic: 123 Blood Pressure Diastolic: 86 Vital Signs Date Time Temp Pulse Resp B/P (MAP) Pulse Ox O2 Delivery O2 Flow Rate FiO2 03/07/20 08:51 73 18 132/89 (103) 99 Room Air 03/07/20 11:25 35.9 Baseline Vital Signs Vital Signs Date Time Temp Pulse Resp B/P (MAP) Pulse Ox O2 Delivery O2 Flow Rate FiO2 03/07/20 08:51 73 18 132/89 (103) 99 Room Air 03/07/20 11:25 35.9 Baseline EKG: Baseline EKG: sinus rhythm, poor R-wave progression Summary: After explaining the procedure and details to the patient, he signed the consent and was brought to the stress nuclear laboratory. Patient exercised on standard Leonardo protocol, EKG, heart rate and blood pressure were monitored continuously, resting and stress doses of radio tracer were injected, imaging was acquired and reviewed in the short axis, horizontal long axis and vertical long axis views Patient was able to exercise for a total of 5 minutes on Leonardo protocol, METs 6.8 Maximum heart rate 180 Maximum blood pressure 164/72 Stress EKG, significant EKG changes with exercise induced bundle branch block Recovery EKG, Return to baseline TID: 0.92 SSS: 8 SDS: 8 EF: 47 Conclusion: 1. Fair exercise tolerance for total of 5 minutes on standard Leonardo protocol 2. Exercise induced bundle branch block/IVCD resolved later in recovery 3. Diaphragmatic attenuation with decreased uptake involving the mid to apical inferior wall basal to mid inferolateral wall with mild reversibility 4. Normal left ventricular size with hypokinesia involving the inferior wall, EF 47 percent ASH ODOM MD Mar 07, 2020 14:17
== END ==
LOC: CARD 07:45 → CATH 11:06
PROVIDERS: ATTEND Internal Medicine Cardiovascular Disease
DX: I25.10 Atherosclerotic heart disease of native coronary artery without angina pectoris (principal); E78.5 Hyperlipidemia, unspecified; I49.3 Ventricular premature depolarization; G47.33 Obstructive sleep apnea (adult) (pediatric); E66.9 Obesity, unspecified; Z68.31 Body mass index [BMI] 31.0-31.9, adult; Z79.899 Other long term (current) drug therapy; Z82.3 Family history of stroke
CPT/HCPCS: 71045; 78452; 80053; 80061; 85027; 85610; 85730; 87081; 93017; 93458; A9502; C1760; C1894; 36415